=== PATIENT | male | born 2000 | race Caucasian/White ===

== ENCOUNTER 2025-09-24 19:32 | Emergency (ER) | payer OTHER ==
[2025-09-25 12:15] LABS: HBSAB Concentration 60.74 mIU/mL; HIV (1/2) Antibody/Antigen NONREACTIVE (NonReactive); HIV 1/2 INDEX 0.06 S/CO (<1.00); Hep C IgG Ab NONREACTIVE S/CO (NonReactive); Hep C Index 0.12 S/CO (0-0.79)
== END 2025-09-24 20:40 | disposition home or self-care (01) ==
LOC: NAV ERS 19:32
DX: Z77.21 Contact with and (suspected) exposure to potentially hazardous body fluids (principal)
CPT/HCPCS: 36415; 86706; 86803; 87389; 99283

== ENCOUNTER 2025-09-25 20:11 | Emergency (ER) | payer OTHER ==
[2025-09-25] MEDS ORDERED: Boostrix 0.5 ML (Tdap) VIAL (>/=7 yrs of age) ONE (20:34)
[2025-09-25] MEDS ORDERED: Bacitracin 1 PK ONE (20:34)
== END 2025-09-25 20:48 | disposition home or self-care (01) ==
LOC: NAV ERS 20:11
DX: S50.312A Abrasion of left elbow, initial encounter (principal); I10 Essential (primary) hypertension; W01.0XXA Fall on same level from slipping, tripping and stumbling without subsequent striking against object, initial encounter; Z23 Encounter for immunization
CPT/HCPCS: 90471; 90715